=== PATIENT | male | born 1985 | race Caucasian/White ===

== ENCOUNTER 2024-08-02 12:11 | Inpatient (IN) | payer BC, SELFPAY ==
[2024-08-02] VITALS (13 sets, daily range): BP systolic 121–180; BP diastolic 73–97
--- NOTE | 2024-08-02 07:51 | ED.GENMED ---
History of Present Illness
General
Chief Complaint: Alcohol Problem
Time Seen by Provider: 08/02/24 07:26
History of Present Illness
History of Present Illness:
39-year-old male with history of chronic alcoholism presenting to the emergency department for intoxication and concern for ingestion of rubbing alcohol. Patient arrives with brother. Does not Friday, patient was intoxicated, passed out in the
back of his car so he took away his alcohol. Today, he went to get him up for work and noticed a half empty bottle of rubbing alcohol under his bed. Patient with prior history of substance abuse, no report of any recent substance abuse. Patient
and brother note vomiting prior to arrival. Patient is limited historian given his intoxication. Brother does note a history of inpatient rehabilitation services in the past, however unsuccessful
Phy Exam
Physical Exam
Physical Exam:
General: Dry mucous membrane
HEENT: protecting airway
Neck: appears supple
CV: Tachycardic, regular rhythm, no evidence of cyanosis
Resp: No accessory muscle use, no increased work of breathing, lungs clear to auscultation bilaterally
Abd: Soft and non-distended, no tenderness to palpation
Extremities: No deformities, no swelling
Neuro: alert, no focal neurologic deficit
: deferred
Rectal: deferred
Psych: Normal affect
Skin: Intact
Scores
Withdrawal Assessment of Alcohol
Withdrawal Assessment Completed?: Yes
Nausea and Vomiting: Mild nausea with no vomiting
Tactile Disturbances: None
Tremor: Moderate, with patient's arms extended
Auditory Disturbances: Not present
Paroxysmal Sweats: Beads of sweat obvious on forehead
Visual Disturbances: Not present
Anxiety: Mild anxiety
Headache, Fullness in Head: Not present
Agitation: Normal activity
Orientation and clouding of sensorium: Cannot do serial additions or is uncertain about date
Total CIWA Score: 11
Alcohol Withdrawal Medication Recommendation: Equal to MSAS Score 5-7. Lorazepam 1mg IV or PO NOW & re-assess q2hrs
Course
Orders/Labs/Results
Orders:
Orders
08/02/24 07:24
Electrocardiogram (*1) Urgent
Reason for Study: Tachycardia
EKG- Treatment ONCE
08/02/24 07:49
Prothrombin Time Urgent
Urinalysis Reflex To Culture Urgent
Urine Drug Abuse Screen Urgent
0.9% Sodium Chloride 1000 ml [Nss] 1,000 ml IV BOLUS
Lorazepam [Ativan] 2 mg IV NOW STA
Thiamine Injection 200 mg IV NOW STA
08/02/24 08:29
Acetaminophen Urgent
Alcohol Urgent
Complete Blood Count/With Diff Urgent
Comprehensive Metabolic Panel Urgent
Magnesium Urgent
Phosphorus Urgent
Salicylate Urgent
Serum Osmolality Urgent
Venous Blood Gas Urgent
%Oxygen/Room Air: 21
08/02/24 08:40
FOLic ACID [Folvite] 1 mg 0.9% Sodium Chloride 50 ml [Nss] 50 ml IV NOW
08/02/24 10:14
0.9% Sodium Chloride 1000 ml [Nss] 1,000 ml IV BOLUS
08/02/24 11:43
Code Status As Directed
Resuscitation Status: Full Code
Bisacodyl [Dulcolax] 10 mg RECTAL [id number] PRN
Docusate W/Senna [Senokot-S] 1 tablet PO BIDPRN PRN
Polyethylene Glycol Powder [Miralax] 17 grams PO DAILYPRN PRN
Activity As Directed
Activity Level: As Tolerated
Vital Signs As Directed
Frequency: Per unit guidelines
08/02/24 11:45
0.9% Sodium Chloride 1000 ml [Nss] 1,000 ml IV 80 mls/hr
DX Deep Vein Thrombosis Video Routine
08/02/24 11:48
Trimethobenzamide [Tigan] 200 mg IM Q6HPRN PRN
08/02/24 11:49
Admit/Transfer Patient As Directed
Co-Sign Provider:
Level of Care: Inpatient admission
Assign to:: Telemetry
Physician / Group: Hospitalist: E[facility]
Diagnosis: Toxic metabolic encephalopathy
Reason for Telemetry: Arrhythmia
Date to Stop Telemetry: 08/05/24
Time to Stop Telemetry: 11:00
Reason for Hospitalization: Toxic metabolic encephalopathy
Expected length of stay greater than two midnights?: Yes
ELOS- Estimated Length of Stay in days: 2
I certify the patient meets the requirements for IP care: Yes
PRN Pain Medication Management As Directed
May give lesser potent ordered pain med per pt: Yes
preference::
Protocol:: Medication orders for pain may be administered in a
manner that supports deferring to patient preference
when the pt is:
- Requesting an ordered lesser potent pain medication.
Least to most potent pain medications are defined
as: acetaminophen < NSAID < tramadol < opioids
(morphine, oxycodone, hydromorphone).
- Requesting a lesser dose of the same medication IF
ORDERED.
- Requesting a less intrusive route of administration
if both routes are prescribed by the provider (PO <
IV).
08/02/24 11:59
0.9% Sodium Chloride [Nss (Preservative Free)] See Protocol IV PRN PRN
Lorazepam [Ativan] 1 mg IV Q1HPRN PRN
Lorazepam [Ativan] 1 mg PO Q2HPRN PRN
Lorazepam [Ativan] 2 mg IV Q1HPRN PRN
08/02/24 12:00
Case Management Consult Once
Case Management Consult: Other
Comment: Substance abuse counseling
DIETARY IP CONSULT Routine
Reason for Consult: Nutrition support, possible refeeding guidelines
B-Hydroxybutyrate Urgent
GGTP Urgent
Urinalysis Routine
Urine Drug Abuse Screen Routine
MSAS SCORE As Directed
MSAS Score 0-4: Repeat MSAS every 2 hours until 0-4 for three consecutive assessments, then every 4 hours x 48
hours.
MSAS Score 5-7: For MILD withdrawl symptoms. Repeat MSAS and RASS every 2 hours
MSAS Score 8-11: For MODERATE withdrawal symptoms. Repeat MSAS and RASS every 1 hour. Consider ICU or IMU
level of care.
MSAS Score > 11: For SEVERE withdrawal symptoms. Repeat MSAS and RASS every 1 hour. Notify provider, consider
ICU level of care.
MSAS Additional Instructions: If no improvement or no decrease in score from severe to moderate within 12
hours, consult psychiatry
MSAS Notify Provider: Notify provider if patient requires more than 10 mg of Lorazepam in eight hour period.
08/02/24 12:08
Acetaminophen [Tylenol] 650 mg PO Q4HPRN PRN
08/02/24 12:09
Ankle, Right 3 view CR [CR Ankle - Right Min 3 Views *] Routine
Comment:
Reason For Exam: pain and swelling
08/02/24 Dinner
Regular
At Your Request: Limited, [employer] Salesperson Required
08/02/24 16:00
Heparin 5,000 units SC Q8
08/02/24 20:00
Thiamine Injection 200 mg IV Q12
08/03/24 06:00
Complete Blood Count/With Diff IN AM
Comprehensive Metabolic Panel IN AM
08/03/24 08:00
FOLic ACID [Folvite] 1 mg PO DAILY
FOLic ACID [Folvite] 1 mg 0.9% Sodium Chloride 50 ml [Nss] 50 ml IV DAILYPRN
08/04/24 06:00
Comprehensive Metabolic Panel IN AM
08/05/24 06:00
Comprehensive Metabolic Panel IN AM
08/05/24 11:00
DC Protocol for Telemetry ONCE
08/05/24 20:00
Thiamine HCl [Vitamin B1] 100 mg PO BID
Abnormal Lab Results
08/02/24
08:29
RBC 4.58 L 10^6/uL
(4.70-6.10)
MCH 31.7 H pg
(27.0-31.0)
RDW 15.0 H %
(11.5-14.5)
Absolute Lymphs (auto) 0.5 L 10^3/uL
(1.2-3.4)
Neutrophils % 85.1 H %
(42.2-75.2)
Lymphocytes % 7.9 L %
(20.5-51.1)
VBG pH 7.55 H
(7.32-7.43)
VBG pCO2 31 L mmHg
(35-48)
VBG pO2 170 H mmHg
(30-50)
VBG HCO3 27.1 H mmol/L
(22-27)
Creatinine 0.6 L mg/dL
(0.7-1.3)
Glucose 170 H mg/dl
(70-99)
Serum Osmolality 364 H mOsm/kg
(275-300)
Total Protein 8.4 H g/dl
(6.3-8.2)
Salicylates < 1.0 L mg/dl
(2.0-20.0)
Acetaminophen < 10 L ug/ml
(10-30)
08/02/24 08:29
08/02/24 08:29
Vital Signs
Initial and Last Documented VS:
Initial Vital Signs
Temp Pulse Resp BP Pulse Ox
98.1 F 139 16 180/96 98
08/02/24 07:21 08/02/24 07:21 08/02/24 07:21 08/02/24 07:21 08/02/24 07:21
Last Documented Vital Signs
Temp Pulse Resp BP Pulse Ox
98.1 F 107 22 141/86 100
08/02/24 07:21 08/02/24 11:00 08/02/24 09:30 08/02/24 11:00 08/02/24 08:17
MDM/Problems Addressed
MDM/Problems Addressed:
39-year-old male with history of chronic alcoholism presenting for ingestion of rubbing alcohol prior to arrival. Vital signs concerning for hypertension and tachycardia.
On exam patient is in no acute distress, however does appear intoxicated, limited historian. Patient does not appear to be concomitant alcohol withdrawal with intoxication. Given ingestion of toxic alcohol, will obtain serum osmolality level and
venous blood gas. Will treat patient with IV fluids and Ativan. EKG obtained, prolonged QTc, holding any antiemetics.
10:00 -patient was not gapped metabolic acidosis as well as an osmolar gap with continued concern for intoxication by patient propyl alcohol. Alcohol level itself is negative. Patient remains tachycardic, altered. Feel patient requires admission
for continued supportive therapy.
*Critical Care Note
Total Time (30-74mins, 75-104mins- exclusive of procedures): Not Applicable
ED Attending Note
-
Portions of this chart may have been created with voice recognition software.� Occasional wrong word or��sound alike� substitutions may have occurred due to the inherent limitations of voice recognition software.
Discharge Plan
Departure
Patient Disposition: Admit
Date of Disposition: 08/02/24
Time of Disposition: 10:34
Presentation/result/management discussed w/ accepting MD/DO: Hospitalist
Patient with high blood pressure during this ER visit?: Yes
Condition: Fair
Discharge Problem:
Isopropyl alcohol poisoning
Interventions
Interventions:
*Risk Screen - Suicide Last Done: 08/02/24 08:53
*Neglect/Abuse Screening Last Done: 08/02/24 07:21
*ED- Fall Risk Assessment Last Done: 08/02/24 07:48
*ED COVID-19 Vaccine History Last Done: 08/02/24 07:48
ED- Neurological Assessment Last Done: 08/02/24 07:48
ED-Psychological Assessment Last Done: 08/02/24 07:54
[2024-08-02] MEDS: ATIVAN 2 MG IV (08:34)
[2024-08-02] MEDS: THIAMINE INJECTION 200 MG IV ×2 (08:35→21:08)
[2024-08-02] MEDS: NSS 1000 IV ×3 (08:36→13:27)
[2024-08-02 08:40] LABS: Venous Blood Gas B.E. 5.3 mmol/L (-4 to +4); Venous Blood Gas HCO3 27.1 mmol/L (22-27); Venous Blood Gas O2 Sat % 99.1 %; Venous Blood Gas pCO2 31 mmHg (35-48); Venous Blood Gas pH 7.55 (7.32-7.43); Venous Blood Gas pO2 170 mmHg (30-50)
[2024-08-02 08:49] LABS: % Immature Granulocytes 0.3 % (0-0.5); % Lymphocytes 7.9 % (20.5-51.1); % Monocytes 6.7 % (1.7-9.3); % Neutrophils 85.1 % (42.2-75.2); Absolute Lymphocytes 0.5 10^3/uL (1.2-3.4); Absolute Monocytes 0.4 10^3/uL (0.1-0.6); Hemoglobin 14.5 g/dL (13.0-18.0); Mean Corp Hgb Conc. 35.4 g/dL (33.0-37.0); Mean Corpuscular Hgb 31.7 pg (27.0-31.0); Mean Corpuscular Volume 89.5 fL (80.0-94.0); Mean Platelet Volume 8.3 fL (7.4-10.4); Nucleated Red Blood Cells % 0 % (-); Platelet Count 174 10^3/uL (130-400); Red Blood Cell Count 4.58 10^6/uL (4.70-6.10); White Blood Cell Count 5.8 10^3/uL (4.8-10.8)
--- NOTE | 2024-08-02 08:55 | EDRN ---
ER provider aware that unable to get enough labs for coag studies
[2024-08-02 08:57] LABS: ALT (SGPT) 35 U/L (0-50); AST (SGOT) 46 U/L (17-59); Acetaminophen < 10 ug/ml (10-30); Albumin 4.8 g/dl (3.5-5.0); Alkaline Phosphatase 63 U/L (38-126); Blood Urea Nitrogen 9 mg/dl (9-20); Calcium 9.6 mg/dl (8.4-10.2); Carbon Dioxide 25 mmol/L (22-30); Chloride 104 mmol/L (98-107); Glucose 170 mg/dl (70-99); Magnesium 2.2 mg/dl (1.6-2.3); Phosphorus 3.5 mg/dl (2.5-4.5); Potassium 3.5 mmol/L (3.5-5.1); Salicylate < 1.0 mg/dl (2.0-20.0); Sodium 145 mmol/L (135-145); Total Bilirubin 0.8 mg/dl (0.2-1.3); Total Protein 8.4 g/dl (6.3-8.2); eGFR > 60.00
[2024-08-02 09:01] LABS: Alcohol None Detected
[2024-08-02 09:29] LABS: Osmolality Serum 364 mOsm/kg (275-300)
[2024-08-02] MEDS: FOLVITE 50.2 MG IV (09:34)
[2024-08-02] MEDS: TYLENOL 650 MG PO ×2 (11:30→22:21)
--- NOTE | 2024-08-02 11:51 | HPS.HSE ---
Addendum entered and electronically signed by Josue Cooney DO 08/02/24 16:42:
Additional diagnosis
Prolonged QTc:
- Likely due to methadone use, will hold for now
- Avoid further QT prolonging agents
- Check and replete electrolytes as needed
Addendum entered and electronically signed by Josue Cooney DO 08/02/24 12:35:
Additional diagnosis:
Methadone dependence:
- Will continue home dose of 10 mg every 6 hours when more alert
Original Note:
Family Physician
-
Family Physician: Reinaldo Mendez
Chief Complaint
-
Toxic metabolic encephalopathy
History of Present Illness
Mr. Watts is a 39-year-old male with a medical history of remote IV heroin use (last known use 2020 per his brother, had been on methadone but not recently) and alcohol abuse who presented with lethargy. HPI was obtained from the patient's
brother, Sarwat. Sarwat reported having difficulty waking the patient up this morning and subsequently found a half empty bottle of isopropyl alcohol underneath the couch, on which he was sleeping. His brother reports that the patient was able to
acknowledge that he had been drinking the isopropyl alcohol. The patient had reportedly been through inpatient rehab earlier this year but has since started drinking again. His brother reports his drinking became problematic over the past few
weeks and the patient's coworkers began complaining about him. Patient's brother has been keeping a close eye on him this past week and took alcohol away from him over the weekend. Patient's last reported drink was sometime this past July
2, which was 3 days prior to arrival. He does not have any history of withdrawal seizures that his brother knows of. However his brother does report noting urinary incontinence this morning when attempting to wake his brother. Patient's brother
is unaware of any chronic medical problems or home medications the patient takes.
In the ED, he was initially hypertensive with a BP of 180/96 which later improved to 141/86. He has been mildly tachycardic with a heart rate around 110. He has been breathing comfortably and saturating appropriately on room air. His labs have
been remarkable for an anion gap of 16, elevated serum osmolality of 364, VBG showing pH 7.55/pCO2 31/pO2 170/bicarb 27.1, toxicology shows undetectable salicylate acetaminophen or alcohol. Patient is lethargic but arousable and can follow simple
commands. He does report right ankle pain. He has been given IV fluids, thiamine and folate, and admitted for further evaluation management of toxic metabolic encephalopathy due to suspected isopropyl alcohol ingestion.
Medical History
Past Medical History
Past Medical History: Reports Other (Alcohol abuse)
Additional Past Medical History:
Alcohol abuse, remote injection heroin abuse (last known use 2020)
Past Surgical History: Reports None
Social History
Unable to obtain full social history at this time due to: Acuity
Alcohol: Chronic Alcoholic
Drug: Former User (Heroin, last known use 2020)
Family History
Family History: Not pertinent
Allergies / Home Medications
Allergies reflects when Allergies were last updated in [facility].
Home Medications with original date entered in [facility]
Allergy/Medication List:
Allergies
Allergy/AdvReac Type Severity Reaction Status Date / Time
No Known Allergies Allergy Verified 08/02/24 07:23
Review of Systems
-
Unable to obtain full review of systems at this time due to: Acuity
Musculoskeletal: Reports Joint Pain (Right ankle pain)
Physical Exam
Vital Signs
Vital Signs
Temp Pulse Resp BP Pulse Ox
98.1 F 107 22 141/86 100
08/02/24 07:21 08/02/24 11:00 08/02/24 09:30 08/02/24 11:00 08/02/24 08:17
Physical Exam
General: No Apparent Distress
Laboratory Results
-
08/02/24 08:29
08/02/24 08:29
Laboratory Results
Total Bilirubin 0.8 mg/dl (0.2-1.3) 08/02/24 08:
AST 46 U/L (17-59) 08/02/24 08:
ALT 35 U/L (0-50) 08/02/24 08:
Alkaline Phosphatase 63 U/L (38-126) 08/02/24 08:
Impression/Plan
-
General: No Apparent Distress, somnolent but arousable
HEENT: NormoCephalic, Moist mucous membranes, Atraumatic
Respiratory: Clear and Non Labored Respirations
Cardiac: S1/S2 and Regular Rhythm; No Rub or Gallop
GI: Soft, Non Tender, Non Distended and Normal Bowel Sounds
Musculoskeletal: No Edema, no deformity, mild right ankle TTP
Skin: Warm and dry
: NO Chapman
Neuro: Somnolent but arousable, no tremor
Psych: Calm and cooperative
Mr. Watts is a 39-year-old male with a medical history of remote IV heroin use (last known use 2020 per his brother, had been on methadone but not recently) and alcohol abuse who presented with lethargy. HPI was obtained from the patient's
brother, Sarwat. Sarwat reported having difficulty waking the patient up this morning and subsequently found a half empty bottle of isopropyl alcohol underneath the couch, on which he was sleeping. His brother reports that the patient was able to
acknowledge that he had been drinking the isopropyl alcohol. The patient had reportedly been through inpatient rehab earlier this year but has since started drinking again. His brother reports his drinking became problematic over the past few
weeks and the patient's coworkers began complaining about him. Patient's brother has been keeping a close eye on him this past week and took alcohol away from him over the weekend. Patient's last reported drink was sometime this past Friday, July
2, which was 3 days prior to arrival. He does not have any history of withdrawal seizures that his brother knows of. However his brother does report noting urinary incontinence this morning when attempting to wake his brother. Patient's brother
is unaware of any chronic medical problems or home medications the patient takes.
In the ED, he was initially hypertensive with a BP of 180/96 which later improved to 141/86. He has been mildly tachycardic with a heart rate around 110. He has been breathing comfortably and saturating appropriately on room air. His labs have
been remarkable for an anion gap of 16, elevated serum osmolality of 364, VBG showing pH 7.55/pCO2 31/pO2 170/bicarb 27.1, toxicology shows undetectable salicylate acetaminophen or alcohol. Patient is lethargic but arousable and can follow simple
commands. He does report right ankle pain. He has been given IV fluids, thiamine and folate, and admitted for further evaluation management of toxic metabolic encephalopathy due to suspected isopropyl alcohol ingestion.
Toxic metabolic encephalopathy:
- Suspect due to isopropyl alcohol ingestion
- Anion gap of 16 with elevated serum osmolality of 364
- No renal or hepatic dysfunction
- Toxicology negative for salicylates, acetaminophen, or ethanol
- Beta hydroxybutyrate pending
- Continue IV fluids thiamine and folate
- Recheck serum chemistries later today
- Supportive care
- Ativan per protocol for alcohol withdrawal
Right ankle pain:
- Check x-ray
- Tylenol for pain
DVT prophylaxis: Subcu heparin
CODE STATUS: Full code
--- NOTE | 2024-08-02 13:54 | EDRN ---
Per Dr Sundeep Small- may use feet for phlebotomy if needed
[2024-08-02 14:18] LABS: GGTP 42 U/L (15-73)
[2024-08-02 14:19] LABS: Blood Urea Nitrogen 8 mg/dl (9-20); Calcium 8.6 mg/dl (8.4-10.2); Carbon Dioxide 26 mmol/L (22-30); Chloride 107 mmol/L (98-107); Glucose 157 mg/dl (70-99); INR 1.13; PT 14.8 Sec (11.4-14.6); Potassium 3.2 mmol/L (3.5-5.1); Sodium 143 mmol/L (135-145); eGFR > 60.00
[2024-08-02 14:24] LABS: B-Hydroxybutyrate 0.11 mmol/L (0.02-0.27)
[2024-08-02] MEDS: ATIVAN 1 MG IV (14:56)
[2024-08-02 17:25] LABS: Urine Albumin 1+ (Neg - Trace); Urine Bilirubin Negative (Negative); Urine Character Clear (Clear); Urine Color Yellow; Urine Glucose Negative (Negative); Urine Ketone 2+ (Negative); Urine Leukocyte Negative (Negative); Urine Nitrite Negative (Negative); Urine Occult Blood Negative (Negative); Urine Specific Gravity 1.005 (<1.030); Urine Urobilinogen 2+ (Neg - 1+)
[2024-08-02 18:03] LABS: Urine Red Blood Cell 0-2 /HPF (0-2); Urine Squamous Cell 0-2 /LPF (Few); Urine White Cell 0-2 /HPF (0-5)
[2024-08-02] MEDS: ATIVAN 1 MG PO ×2 (18:47→21:08)
[2024-08-02] MEDS: KLOR-CON 40 MEQ PO (18:47)
[2024-08-02] MEDS: HEPARIN SC (18:48)
[2024-08-02 19:26] LABS: Amphetamines Negative (Negative); Barbiturates Negative (Negative); Benzodiazepines Positive (Negative); Buprenorphine Negative (Negative); Cocaine Negative (Negative); Marijuana Negative (Negative); Methadone Negative (Negative); Methamphetamines Negative (Negative); Opiates Negative (Negative); Phencyclidine Negative (Negative); Tricyclic Antidepressants Negative (Negative)
[2024-08-02 19:45] LABS: Fentanyl, Urine Negative (Negative)
[2024-08-02] MEDS: NICODERM TRANSDERMAL 14 MG TRANSDERM (21:42)
[2024-08-03] VITALS: BP 149/93
[2024-08-03] MEDS: HEPARIN 5000 UNITS SC ×2 (01:18→08:24)
[2024-08-03] MEDS: TIGAN 200 MG IM ×2 (01:18→08:23)
[2024-08-03] MEDS: NSS 1000 IV (01:24)
[2024-08-03 03:31] VITALS: BP 143/94
[2024-08-03 04:00] VITALS: BP 153/90
[2024-08-03 05:00] VITALS: BP 147/96
[2024-08-03] MEDS: TYLENOL 650 MG PO ×2 (05:11→10:38)
[2024-08-03 06:00] VITALS: BP 134/91
[2024-08-03 06:12] LABS: % Basophils 0.2 % (0-2); % Immature Granulocytes 0.3 % (0-0.5); % Lymphocytes 15.2 % (20.5-51.1); % Monocytes 7.4 % (1.7-9.3); % Neutrophils 76.9 % (42.2-75.2); Absolute Lymphocytes 0.9 10^3/uL (1.2-3.4); Absolute Monocytes 0.4 10^3/uL (0.1-0.6); Absolute Neutrophils 4.6 10^3/uL (1.4-6.5); Hemoglobin 12.9 g/dL (13.0-18.0); Mean Corp Hgb Conc. 34.9 g/dL (33.0-37.0); Mean Corpuscular Hgb 31.8 pg (27.0-31.0); Mean Corpuscular Volume 91.1 fL (80.0-94.0); Mean Platelet Volume 8.6 fL (7.4-10.4); Nucleated Red Blood Cells % 0 % (-); Platelet Count 156 10^3/uL (130-400); Red Blood Cell Count 4.06 10^6/uL (4.70-6.10); Red Cell Dist. Width 14.9 % (11.5-14.5); White Blood Cell Count 5.9 10^3/uL (4.8-10.8)
[2024-08-03 06:43] LABS: ALT (SGPT) 32 U/L (0-50); AST (SGOT) 44 U/L (17-59); Albumin 4.3 g/dl (3.5-5.0); Alkaline Phosphatase 57 U/L (38-126); Blood Urea Nitrogen 7 mg/dl (9-20); Calcium 9.4 mg/dl (8.4-10.2); Carbon Dioxide 25 mmol/L (22-30); Chloride 109 mmol/L (98-107); Glucose 111 mg/dl (70-99); Potassium 3.7 mmol/L (3.5-5.1); Sodium 142 mmol/L (135-145); Total Bilirubin 1.1 mg/dl (0.2-1.3); Total Protein 7.4 g/dl (6.3-8.2); eGFR > 60.00
[2024-08-03] MEDS: THIAMINE INJECTION 200 MG IV (08:22)
[2024-08-03] MEDS: FOLVITE 1 MG PO (08:23)
[2024-08-03] MEDS: NICODERM TRANSDERMAL 14 MG TRANSDERM (08:24)
--- NOTE | 2024-08-03 09:34 | CM ---
Addendum entered by Susan Zuniga 08/03/24 14:08:
Plan: Discharge to [facility], [facility]
Facility will provide transport
Addendum entered by Susan Zuniga 08/03/24 11:24:
Per [facility] request, clinicals faxed to [facility] Admission;
Original Note:
Met with patient at bedside in the ED
Pharmacy verified: [facility] [address] [place] [address]
Patient reported he lives with family; multilevel home; ramp to enter; his bedroom and bath on 1st floor
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
NO DME
NO SNF or Home Health utilization history
Brother will transport if discharged to home
Case Management Consult completed; patient stated he wants to go to inpatient rehab; agreeable to meeting with [facility] counselor; referral sent via phone to [facility] counselor
Plan: discharge when medically stable; disposition facility to be determined
[2024-08-03] MEDS: DOLOPHINE 10 MG PO (10:39)
--- NOTE | 2024-08-03 11:33 | PTCARENOTE ---
Pt ate most of his breakfast tray and is drinking fluids. Tolerating well - no vomiting, nausea improved. Seen by RANJIT at bedside who will work on rehab placement for him.
[2024-08-03] MEDS: ATIVAN 1 MG PO (12:58)
[2024-08-03 13:00] VITALS: BP 152/86
[2024-08-03] MEDS: NSS IV (14:03)
--- NOTE | 2024-08-03 14:15 | W.DCSUMMARY ---
Discharge Summary
Discharge Data
Date of Admission: 08/02/24
Date of Discharge: 08/03/24
-
Pending Results: No
Hospital Course
Mr. Watts is a 39-year-old male with a medical history of remote IV heroin use (currently on methadone maintenance therapy) and alcohol abuse who presented with lethargy. HPI was obtained from the patient's brother, Sarwat. Sarwat reported having
difficulty waking the patient up that morning and subsequently found a half empty bottle of isopropyl alcohol underneath the couch, on which he was sleeping. His brother reported that the patient was able to acknowledge that he had been drinking
the isopropyl alcohol. The patient had been through inpatient rehab earlier this year but had since started drinking again. Patient's last reported drink was sometime July 30, which was 3 days prior to arrival. He does not have any history
of withdrawal seizures that his brother knows of.
In the ED, he was initially hypertensive with a BP of 180/96 which later improved to 141/86. He was mildly tachycardic with a heart rate around 110. He was breathing comfortably and saturating appropriately on room air. His labs were remarkable
for an anion gap of 16, elevated serum osmolality of 364, VBG showing pH 7.55/pCO2 31/pO2 170/bicarb 27.1, toxicology shows undetectable salicylate acetaminophen or alcohol. Patient was lethargic but arousable and can follow simple commands. He
did report right ankle pain. He was given IV fluids, thiamine and folate, and admitted for further evaluation management of toxic metabolic encephalopathy due to isopropyl alcohol ingestion.
He became more alert over the 12 hours following his admission. Repeat labs showed normal anion gap. Right ankle x-ray showed no evidence of acute fracture or dislocation. He returned to his baseline mental status approximately 24 hours after
admission. Initial EKG showed a prolonged QTc of almost 600 and so his home methadone was held and he was given only non-QT prolonging antinausea medications. Repeat EKG after 24 hours showed a normal QTc of 460 at which point his home methadone
was restarted. His methadone prescription is for 10 mg every 6 hours. However, patient reports taking only 20 mg daily usually.
He had a mild hypokalemia of 3.2 which resolved with oral repletion. He required minimal amounts of Ativan for withdrawal symptoms. He was evaluated by case management and drug and alcohol portfolio specialist who arranged for inpatient drug
rehabilitation.
At time of hospital discharge she was medically stable. He has been discharged to [facility] in [place], [place]. He will need close follow-up with his primary care physician.
General: No Apparent Distress, Comfortable and Conversant
HEENT: NormoCephalic, Moist mucous membranes, Atraumatic
Respiratory: Clear and Non Labored Respirations
Cardiac: S1/S2 and Regular Rhythm; No Rub or Gallop
GI: Soft, Non Tender, Non Distended and Normal Bowel Sounds
Musculoskeletal: No Edema, no deformity
: NO Chapman
Neuro: Awake, Alert, Nonfocal/grossly intact
Psych: Calm and Intact Judgment/Insight
Discharge Plan
-
Patient Disposition: Acute Rehab Facility
Discharge Diagnosis/Procedures: Isopropyl alcohol intoxication, toxic metabolic encephalopathy
Diet: Regular
Activity: No restrictions
Activity Restrictions/Additional Instructions:
Mr. Watts is a 39-year-old male with a medical history of remote IV heroin use (currently on methadone maintenance therapy) and alcohol abuse who presented with lethargy. HPI was obtained from the patient's brother, Sarwat. Sarwat reported having
difficulty waking the patient up that morning and subsequently found a half empty bottle of isopropyl alcohol underneath the couch, on which he was sleeping. His brother reported that the patient was able to acknowledge that he had been drinking
the isopropyl alcohol. The patient had been through inpatient rehab earlier this year but had since started drinking again. Patient's last reported drink was sometime July 30, which was 3 days prior to arrival. He does not have any history
of withdrawal seizures that his brother knows of.
In the ED, he was initially hypertensive with a BP of 180/96 which later improved to 141/86. He was mildly tachycardic with a heart rate around 110. He was breathing comfortably and saturating appropriately on room air. His labs were remarkable
for an anion gap of 16, elevated serum osmolality of 364, VBG showing pH 7.55/pCO2 31/pO2 170/bicarb 27.1, toxicology shows undetectable salicylate acetaminophen or alcohol. Patient was lethargic but arousable and can follow simple commands. He
did report right ankle pain. He was given IV fluids, thiamine and folate, and admitted for further evaluation management of toxic metabolic encephalopathy due to isopropyl alcohol ingestion.
He became more alert over the 12 hours following his admission. Repeat labs showed normal anion gap. Right ankle x-ray showed no evidence of acute fracture or dislocation. He returned to his baseline mental status approximately 24 hours after
admission. Initial EKG showed a prolonged QTc of almost 600 and so his home methadone was held and he was given only non-QT prolonging antinausea medications. Repeat EKG after 24 hours showed a normal QTc of 460 at which point his home methadone
was restarted. His methadone prescription is for 10 mg every 6 hours. However, patient reports taking only 20 mg daily usually.
He had a mild hypokalemia of 3.2 which resolved with oral repletion. He required minimal amounts of Ativan for withdrawal symptoms. He was evaluated by case management and drug and alcohol portfolio specialist who arranged for inpatient drug
rehabilitation.
At time of hospital discharge she was medically stable. He has been discharged to [facility] in [place], [place]. He will need close follow-up with his primary care physician.
Referrals:
Reinaldo Mendez DO [Family Provider] -
Prescriptions:
New
nicotine 14 mg/24 hr Patch 24 Hour
14 mg transdermal DAILY 30 Days Qty: 30 0RF
folic acid 1 mg Tablet
1 mg PO DAILY 30 Days Qty: 30 0RF
thiamine mononitrate (vit B1) 100 mg Tablet
100 mg PO BID 30 Days Qty: 60 0RF
Continued
methadone 10 mg Tablet
10 mg PO Q6H
Patient Comments:
pdmp patient pick out hand on 07/10/24 #120
Discharge Orders:
Discharge Patient (As Directed); Ordered 08/03/24
Ordered By: Josue Cooney
Discharge Date and Time
Print Language: SINHALA
== END 2024-08-03 14:59 | DRG 896 ==
LOC: ED 12:11
PROVIDERS: ADMITTING PHYSICIAN Internal Medicine; EMERGENCY PHYSICIAN Student in an Organized Health Care Education/Training Program; FAMILY PHYSICIAN Family Medicine
DX: F10.129 Alcohol abuse with intoxication, unspecified (principal); G92.8 Other toxic encephalopathy; F11.20 Opioid dependence, uncomplicated; R94.31 Abnormal electrocardiogram [ECG] [EKG]; T51.2X1A Toxic effect of 2-Propanol, accidental (unintentional), initial encounter; E87.6 Hypokalemia
CPT/HCPCS: 73610; 80048; 80053; 80143; 80179; 80306; 80307; 81003; 81015; 82010; 82077; 82805; 82977; 83735; 83930; 84100; 85025; 85610; 93005; 96361; 96374; 96375; 99285

== ENCOUNTER 2024-09-25 21:13 | Emergency (ER) | payer BC, SELFPAY ==
[2024-09-25 21:18] VITALS: BP 151/94
[2024-09-25 21:36] VITALS: BP 132/81
[2024-09-25 21:45] VITALS: BMI 30.2
[2024-09-25] MEDS: NSS 1000 IV (21:52)
[2024-09-25 21:59] LABS: Venous Blood Gas B.E. 3.9 mmol/L (-4 to +4); Venous Blood Gas HCO3 29.7 mmol/L (22-27); Venous Blood Gas O2 Sat % 83.9 %; Venous Blood Gas pCO2 48 mmHg (35-48); Venous Blood Gas pO2 51 mmHg (30-50)
[2024-09-25 22:00] VITALS: BP 147/89
[2024-09-25 22:01] LABS: % Basophils 0.2 % (0-2); % Immature Granulocytes 0.2 % (0-0.5); % Lymphocytes 15.8 % (20.5-51.1); % Monocytes 8.1 % (1.7-9.3); % Neutrophils 75.7 % (42.2-75.2); Absolute Lymphocytes 0.7 10^3/uL (1.2-3.4); Absolute Monocytes 0.4 10^3/uL (0.1-0.6); Absolute Neutrophils 3.5 10^3/uL (1.4-6.5); Hematocrit 39.7 % (39.0-52.0); Hemoglobin 13.7 g/dL (13.0-18.0); Mean Corp Hgb Conc. 34.5 g/dL (33.0-37.0); Mean Corpuscular Hgb 31.9 pg (27.0-31.0); Mean Corpuscular Volume 92.5 fL (80.0-94.0); Mean Platelet Volume 7.8 fL (7.4-10.4); Nucleated Red Blood Cells % 0 % (-); Platelet Count 259 10^3/uL (130-400); Red Blood Cell Count 4.29 10^6/uL (4.70-6.10); Red Cell Dist. Width 13.3 % (11.5-14.5); White Blood Cell Count 4.7 10^3/uL (4.8-10.8)
--- NOTE | 2024-09-25 22:06 | ED.GENMED ---
History of Present Illness
General
Chief Complaint: Abnormal Lab Value
Source: patient and records
Exam Limitations: none
Time Seen by Provider: 09/25/24 21:49
Nursing documentation reviewed up to this point in time: agreed with except (Did not report leg pain to me)
History of Present Illness
History of Present Illness:
39-year-old male with a past medical history of polysubstance use presents to the ER for evaluation after isopropyl alcohol ingestion. Patient reports that this evening about 3 hours prior to arrival he drank about a pint of isopropyl alcohol; he
said he did this to try to become intoxicated. He denies any suicidal ideation or intent at self-harm. He does have a history of similar behavior in the past. He denies any coingestions�was not drinking ethanol tonight. He does have a history of
IV drug use and is maintained on methadone but denies any drug use this evening. His brother brought him into the emergency room this evening to be evaluated. He complains of feeling 'frustrated' but denies any physical complaints. Specifically
denies abdominal pain, nausea/vomiting. He apparently complained of 'extreme bilateral leg pain' in triage but denies this to me. He says that he is very frustrated by his alcohol use and wants to pursue rehab and detox. He says his longest sober
period was for about 5 years�at that time he says that he was successful by quitting 'cold turkey.' He relapsed around 5 years ago and has been drinking since. 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 He is currently homeless. He reports that his
brother is his only close family contact.
Review of Systems
Review of Systems
All Other Systems: ROS reviewed and negative except as documented in HPI and ROS
Constitutional: Denies fever
Respiratory: Denies trouble breathing
Cardiac: Denies chest pain
ABD/GI: Denies abdominal pain, nausea or vomiting
: Denies flank pain
Musculoskeletal: Denies neck pain or back pain
Neurological: Denies dizzy or headache
Phy Exam
Physical Exam
Physical Exam:
General: Awake, alert, disheveled and appears mildly intoxicated
Head: Normocephalic, atraumatic
Eyes: Conjunctiva normal, EOMI, pupils equal round and reactive to light
Throat: Airway intact, handling secretions
Neck: Trachea midline, supple without meningismus
Lungs: Clear to auscultation bilaterally, no wheezing, rales, rhonchi
Heart: Tachycardia with regular rhythm, no murmurs, gallops, or rubs
Abd: Soft, non distended, nontender
Skin: Warm and dry, no rash
Extremities: No edema in extremities, equal pulses in all extremities
Scores
Heart Failure Risk
Heart Failure Risk Score: Not Applicable
Heart Score for Chest Pain Patients
STEMI patient?: Not applicable
Withdrawal Assessment of Alcohol
Withdrawal Assessment Completed?: Not applicable
Course
Orders/Labs/Results
Orders:
Orders
09/25/24 21:26
ECG [Electrocardiogram (*1)] Urgent
Reason for Study: Tachycardia
EKG- Treatment ONCE
09/25/24 21:47
Acetaminophen Urgent
Acetone [B-Hydroxybutyrate] Urgent
Alcohol Urgent
Basic Metabolic Panel Urgent
Complete Blood Count/With Diff Urgent
Salicylate Urgent
Serum Osmolality Urgent
Venous Blood Gas Urgent
%Oxygen/Room Air: room air
09/25/24 21:51
0.9% Sodium Chloride 1000 ml [Nss] 1,000 ml IV BOLUS
09/25/24 23:46
Acetone [B-Hydroxybutyrate] Urgent
Comprehensive Metabolic Panel Urgent
Serum Osmolality Urgent
Abnormal Lab Results
09/25/24 09/26/24
21:47 00:54
WBC 4.7 L 10^3/uL
(4.8-10.8)
RBC 4.29 L 10^6/uL
(4.70-6.10)
MCH 31.9 H pg
(27.0-31.0)
Absolute Lymphs (auto) 0.7 L 10^3/uL
(1.2-3.4)
Neutrophils % 75.7 H %
(42.2-75.2)
Lymphocytes % 15.8 L %
(20.5-51.1)
VBG pO2 51 H mmHg
(30-50)
VBG HCO3 29.7 H mmol/L
(22-27)
Chloride 110 H mmol/L
(98-107)
BUN 8 L mg/dl
(9-20)
Creatinine 0.6 L mg/dL
(0.7-1.3)
Glucose 164 H mg/dl 133 H mg/dl
(70-99) (70-99)
Serum Osmolality 345 H mOsm/kg 353 H mOsm/kg
(275-300) (275-300)
Salicylates < 1.0 L mg/dl
(2.0-20.0)
Acetaminophen < 10 L ug/ml
(10-30)
B-Hydroxybutyrate 0.58 H mmol/L 0.44 H mmol/L
(0.02-0.27) (0.02-0.27)
09/25/24 21:47
09/26/24 00:54
Vital Signs
Initial and Last Documented VS:
Initial Vital Signs
Temp Pulse Resp BP Pulse Ox
36.6 C 144 24 151/94 100
09/25/24 21:18 09/25/24 21:18 09/25/24 21:18 09/25/24 21:18 09/25/24 21:18
Last Documented Vital Signs
Temp Pulse Resp BP Pulse Ox
36.6 C 105 25 143/67 95
09/25/24 21:18 09/26/24 01:00 09/26/24 01:00 09/26/24 01:00 09/26/24 01:00
MDM/Problems Addressed
Differential Diagnosis Includes:
Isopropyl alcohol ingestion
MDM/Problems Addressed:
39-year-old male presents for evaluation after drinking isopropyl alcohol recreationally. He reports ingestion was 2 or 3 hours prior to arrival. Denies any intent of self-harm or suicidal ideation. He has similar behavior in the past. Denies
any coingestions. He was hypertensive and tachycardic in triage�repeat vital signs during my assessment blood pressure improved and heart rate improved although still tachycardic. Respiratory rate 20-22, pulse ox normal, afebrile. Physical exam
as above. Will place an IV and send labs including a CBC and a CMP, VBG, serum osmolality. Check Tylenol and salicylate levels, alcohol level. Will check acetone level. Will provide some IV fluids. Check EKG. Reassess after the above.
Labs reviewed: CBC shows no clinically significant abnormalities. His CMP shows no significant electrolyte derangements and notably normal bicarb without acidosis. pH 7.4. His alcohol level is negative. His Tylenol and salicylate levels are
negative. His serum osmolality is 345. Calculated osmolality 300�osmolar gap 45. His acetone level is elevated to 0.58�these findings are all consistent with isopropyl alcohol ingestion as reported. Nevertheless I did discuss the case with
poison control�they agreed findings are consistent with isopropyl alcohol ingestion, recommended repeat labs in 4 hours to ensure no worsening acidosis. I did also add methanol and ethylene glycol levels for completeness although without acidosis
this is unlikely. Will continue with supportive care in the meantime. I did reach out to [facility] to speak with patient about detox/rehab.
Patient accepted to [facility]--will need to arrange transport. He is pending repeat labs for medical clearance and then can be discharged to detox/rehab.
Repeat labs reviewed�remains with elevated osmolar gap but no metabolic acidosis. Acetone level remains elevated�consistent with his reported isopropyl alcohol ingestion. He is clinically sober and at this point has no signs of acute withdrawal.
He has been accepted for rehab at [facility]. At this point stable for discharge to rehab.
*Pulse Oximetry
SaO2: 100
Oxygen Mode of Delivery: Room air
Patient hypoxic: no (100%)
*EKG
Interpreted by ED Provider?: Yes
Heart Rate: 112
Rate: tachycardiac
Rhythm: sinus and sinus tachycardia
[place]: normal axis
Interval: normal interval and normal QT interval
QRS Pattern: right bundle branch block (Incomplete)
Ischemia: no ischemia
*Critical Care Note
Total Time (30-74mins, 75-104mins- exclusive of procedures): Not Applicable
Data Reviewed
Source: patient and records
Patient Management
Discussion with other providers: Axminster Weaver (Discussed with poison control)
ED Attending Note
-
Portions of this chart may have been created with voice recognition software.� Occasional wrong word or��sound alike� substitutions may have occurred due to the inherent limitations of voice recognition software.
Discharge Plan
Departure
Patient Disposition: Acute Rehab Facility
Date of Disposition: 09/26/24
Time of Disposition: 01:36
Discharge Problem:
Isopropyl alcohol poisoning
Instructions: Alcohol Poisoning (DC)
Prescriptions:
No Action
methadone 10 mg Tablet
10 mg PO Q6H
Patient Comments:
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
nicotine 14 mg/24 hr Patch 24 Hour
14 mg transdermal DAILY 30 Days Qty: 30 0RF
folic acid 1 mg Tablet
1 mg PO DAILY 30 Days Qty: 30 0RF
thiamine mononitrate (vit B1) 100 mg Tablet
100 mg PO BID 30 Days Qty: 60 0RF
Referrals:
UNKNOWN - PT DOES,NOT KNOW [Family Provider]
Activity Restrictions/Additional Instructions:
Thank you for visiting the Emergency Department at [facility].
1. Please schedule a follow up appointment as directed. Call first thing tomorrow morning to make an appointment.
2. If indicated, please take your medications as instructed and indicated on discharge paperwork.
3. If any of your symptoms do not improve, or persist, or become more severe within 6-12 hours, please return to the emergency department for further care.
4. Please return to the emergency department if you develop a headache, neck pain/stiffness, fever greater than 100.4F, chest pain, shortness of breath, persistent nausea, vomiting, slurred speech, difficulty walking, numbness/tingling, weakness,
signs of infection or any other symptoms that are worrisome to you.
Please call [phone] if you have any questions.
Interventions
Interventions:
*Risk Screen - Suicide Last Done: 09/25/24 21:18
*General Assessment Last Done: 09/25/24 21:18
*Neglect/Abuse Screening Last Done: 09/25/24 21:18
*ED- Fall Risk Assessment Last Done: 09/25/24 21:18
*ED COVID-19 Vaccine History Last Done: 09/25/24 21:18
Discharge Date and Time
Print Language: HONG KONGER
[2024-09-25 22:15] LABS: Osmolality Serum 345 mOsm/kg (275-300)
[2024-09-25 22:26] LABS: Acetaminophen < 10 ug/ml (10-30); Alcohol None Detected; B-Hydroxybutyrate 0.58 mmol/L (0.02-0.27); Blood Urea Nitrogen 9 mg/dl (9-20); Calcium 9.3 mg/dl (8.4-10.2); Carbon Dioxide 26 mmol/L (22-30); Chloride 106 mmol/L (98-107); Estimated Creatinine Clearance > 125 ml/min; Glucose 164 mg/dl (70-99); Potassium 4.2 mmol/L (3.5-5.1); Salicylate < 1.0 mg/dl (2.0-20.0); Sodium 144 mmol/L (135-145); eGFR > 60.00
--- NOTE | 2024-09-25 22:30 | EDRN ---
Patient on the phone with RANJIT
[2024-09-25 23:00] VITALS: BP 138/83
[2024-09-26 00:07] VITALS: BP 137/64
[2024-09-26 01:00] VITALS: BP 143/67
[2024-09-26 01:13] LABS: Osmolality Serum 353 mOsm/kg (275-300)
[2024-09-26 01:27] LABS: ALT (SGPT) 42 U/L (0-50); AST (SGOT) 37 U/L (17-59); Albumin 4.3 g/dl (3.5-5.0); Alkaline Phosphatase 63 U/L (38-126); Blood Urea Nitrogen 8 mg/dl (9-20); Calcium 8.7 mg/dl (8.4-10.2); Carbon Dioxide 25 mmol/L (22-30); Chloride 110 mmol/L (98-107); Estimated Creatinine Clearance > 125 ml/min; Glucose 133 mg/dl (70-99); Potassium 3.7 mmol/L (3.5-5.1); Sodium 144 mmol/L (135-145); Total Bilirubin 0.4 mg/dl (0.2-1.3); Total Protein 7.2 g/dl (6.3-8.2); eGFR > 60.00
[2024-09-26 01:34] LABS: B-Hydroxybutyrate 0.44 mmol/L (0.02-0.27)
== END 2024-09-26 01:52 ==
LOC: EMR 21:13
PROVIDERS: Emergency Medicine; EMERGENCY PHYSICIAN Emergency Medicine
DX: T51.2X1A Toxic effect of 2-Propanol, accidental (unintentional), initial encounter (principal); F19.90 Other psychoactive substance use, unspecified, uncomplicated; Z59.00 Homelessness unspecified
CPT/HCPCS: 99285; 96360; 80048; 80053; 80143; 80179; 82010; 82077; 82805; 83930; 85025; 93005